=== PATIENT | female | born 2005 | race Caucasian/White ===

== ENCOUNTER 2025-03-27 01:25 | Emergency (ER) | payer OTHER, SELFPAY ==
[2025-03-27 01:38] VITALS: BP 169/10
--- NOTE | 2025-03-27 02:16 | ED.GENMED ---
History of Present Illness
General
Chief Complaint: Back Pain
Source: patient
Exam Limitations: none
Time Seen by Provider: 03/27/25 01:52
Nursing documentation reviewed up to this point in time: agreed with
History of Present Illness
History of Present Illness:
19-year-old female presenting to the emergency department today with concerns of back discomfort mainly to the left low back. Has had intermittent pain over the past 2 years after her back injury she sustained. Has had stiffness intermittently
usually uses a warm compress or heating pad. Tried using this tonight but has had ongoing pain. Has not taken any pain medications. Does occasionally take Tylenol for this. Denies any urinary symptoms changes in bowel movements numbness or
weakness.
Past History
Past History
ED Past Medical History: None
ED Past Surgical History: None
Social History
Tobacco: Non-smoker
Alcohol: None
Drug: None
Living: with family
Employment: Other
Family History
Family History: Other
Review of Systems
Review of Systems
Allergies reviewed?: Yes
All Other Systems: ROS reviewed and negative except as documented in HPI and ROS
Phy Exam
Physical Exam
Physical Exam:
GENERAL: Alert , in no apparent distress
EYE: pupils equal and reactive
NECK: Supple, no significant adenopathy.
ENT: o/p clr, mmm.
CARDIAC: Regular rate and rhythm .
LUNGS: Clear breath sounds bilaterally, no acute respiratory distress, no wheezes/rales/rhonchi
ABDOMEN: Soft, without focal tenderness, no r/g, no cvat
NEUROLOGICAL: Alert and oriented, no focal neuro deficits
SKIN: Warm and dry, skin intact.
MUSCULOSKELETAL: Pain is reproducible to light palpation of the left lower lumbar paraspinals no midline pain no redness or warmth increase discomfort with certain movements and positioning. Patient preferring to stand up during exam, no edema,
well perfused.
PSYCH: Normal and appropriate interaction.
Course
Orders/Labs/Results
Orders:
Orders
03/27/25 02:13
Ketorolac [Toradol] 30 mg IM NOW STA
03/27/25 02:14
Ketorolac [Toradol] 15 mg IM NOW STA
03/27/25 02:25
Test Result ONCE
03/27/25 02:28
Beta Hcg Urine Qualitative Screen [HCG, Urine Qualitative Screen] Urgent
Date Specimen was Collected: 03/27/25
Time Specimen was Collected: 02:26
Urinalysis Reflex To Culture Urgent
Date Specimen was Collected: 03/27/25
Time Specimen was Collected: 02:26
Urine Microscopic Reflex Cult Urgent
Urine Culture Urgent
KATHLEEN Source: U
Specimen Description:
Date Specimen was Collected: 03/27/25
Time Specimen was Collected: 02:26
03/27/25 03:08
Cyclobenzaprine HCl [Flexeril] 10 mg PO NOW STA
Abnormal Lab Results
03/27/25
02:28
Ur Occult Blood Reflex 2+ A
(Negative)
Leukocyte Esterase Rfl 3+ A
(Negative)
Urine WBC (Reflex) >100 A /HPF
(0-5)
Urine Bacteria (Reflex) Moderate A
(Negative)
Urine Albumin (Reflex) 2+ A
(Neg - Trace)
Vital Signs
Initial and Last Documented VS:
Initial Vital Signs
Temp Pulse Resp BP Pulse Ox
98.7 F 126 18 169/10 95
03/27/25 01:38 03/27/25 01:38 03/27/25 01:38 03/27/25 01:38 03/27/25 01:38
Last Documented Vital Signs
Temp Pulse Resp BP Pulse Ox
98.7 F 126 18 169/10 95
03/27/25 01:38 03/27/25 01:38 03/27/25 01:38 03/27/25 01:38 03/27/25 02:17
MDM/Problems Addressed
MDM/Problems Addressed:
19-year-old female presenting to the emergency department today with concerns of left low back discomfort stiffness. Has had intermittent back pain over the past few years. Has been assessed for this in the past and had an x-ray that did not show
any emergent findings at the time. Symptoms do seem to be consistent with mechanical back pain considering is worse with positioning and movement and does not have any associated symptoms with it. Of note the patient did have a urinalysis that
showed greater than 100 white blood cells as well as moderate bacteria. She denies any significant urinary symptoms no frequency urgency or pain with urination. There was significant amount of squamous epithelial cells. Patient's symptoms seemed
most consistent with mechanical pain considering it is worse with certain positions and movement. Very unlikely represent UTI. Was given Toradol as well as Flexeril with improvement of symptoms stable for discharge at this time. Return
precautions given.
*Pulse Oximetry
SaO2: 95
Oxygen Mode of Delivery: Room air
Patient hypoxic: no (95)
*Critical Care Note
Total Time (30-74mins, 75-104mins- exclusive of procedures): Not Applicable
ED Attending Note
-
Portions of this chart may have been created with voice recognition software.� Occasional wrong word or��sound alike� substitutions may have occurred due to the inherent limitations of voice recognition software.
Discharge Plan
Departure
Patient Disposition: Home (Routine Discharge)
Date of Disposition: 03/27/25
Time of Disposition: 03:53
Patient with high blood pressure during this ER visit?: No
Condition: Good
Discharge Problem:
Back pain
Instructions: Low Back Pain (DC)
Prescriptions:
New
cyclobenzaprine 10 mg tablet
10 mg PO HS PRN (Reason: muscle spasm) Qty: 7 0RF
ibuprofen 600 mg tablet
600 mg PO Q8H PRN (Reason: Pain) Qty: 12 0RF
No Action
ketorolac 10 mg tablet
10 mg PO TID 3 Days Qty: 10 0RF
Referrals:
Antolin Preston CRNP [Family Provider, Family Practice]
Activity Restrictions/Additional Instructions:
You came to the emergency department today with concerns of back discomfort. Please take the prescribed indications of the symptoms otherwise follow-up closely with the primary care doctor for further management and assessment. Return for any
worsening, new or concerning symptoms.
Interventions
Interventions:
*Risk Screen - Suicide Last Done: 03/27/25 01:38
*General Assessment Last Done: 03/27/25 04:34
*Neglect/Abuse Screening Last Done: 03/27/25 04:34
*ED- Fall Risk Assessment Last Done: 03/27/25 04:34
*ED COVID-19 Vaccine History Last Done: 03/27/25 04:34
*ED Influenza Vaccine History Last Done: 03/27/25 04:34
*Nursing Disposition Last Done: 03/27/25 04:36
ED-Musculoskeletal Assessment Last Done: 03/27/25 04:34
Discharge Date and Time
Discharge Date/Time: 03/27/25 04:37
Print Language: GREEK
[2025-03-27] MEDS: TORADOL 15 MG IM (02:19)
[2025-03-27 02:35] LABS: Urine Character Clear (Clear)
[2025-03-27 02:46] LABS: Urine Squamous Cell 26-30 /LPF (Few)
[2025-03-27 02:47] LABS: HCG, Urine Qualitative Screen Negative; Urine Red Blood Cell 0-2 /HPF (0-2); Urine White Cell >100 /HPF (0-5)
[2025-03-27] MEDS: FLEXERIL 10 MG PO (03:25)
== END 2025-03-27 04:37 | disposition home or self-care (01) ==
LOC: EMR 01:25
PROVIDERS: Physician Assistant; EMERGENCY PHYSICIAN Emergency Medicine; FAMILY PHYSICIAN Nurse Practitioner Family
DX: M54.50 Low back pain, unspecified (principal)
CPT/HCPCS: 99284; 96372; 81003; 81015; 81025; 87086

== ENCOUNTER 2025-04-03 01:29 | Day surgery (SDC) | payer OTHER, SELFPAY ==
[2025-04-02 19:20] VITALS: BP 156/95
[2025-04-02 20:31] VITALS: BMI 43.9
--- NOTE | 2025-04-02 20:33 | ED.GENMED ---
History of Present Illness
<Liana Urban NP - Last Filed: 04/03/25 00:50>
General
Chief Complaint: Abdominal Symptoms
Source: patient
Exam Limitations: none
Time Seen by Provider: 04/02/25 20:15
Nursing documentation reviewed up to this point in time: agreed with
History of Present Illness
History of Present Illness:
Patient to the emergency department with complaint of abdominal pain and vomiting. States she was seen in the emergency department on Monday with a complaint of left lower back pain she. She was diagnosed with a musculoskeletal injury, prescribed
muscle relaxant and anti-inflammatory. She states that after returning home from the emergency department she had an episode of vomiting. No further episodes of vomiting until this a.m. She reports improvement in her low back pain, but now
reports abdominal pain. She denies fever or chills. No episodes of diarrhea. Unable to eat or drink today due to the nausea and vomiting. She was evaluated at urgent care prior to coming here and was advised to come to the emergency department
for further evaluation. She was given Zofran by urgent care and reports improvement in her nausea symptoms. She has not had any further episodes of vomiting. To ED accompanied by mother.
Past History
<Liana Urban GENERAL MATCHER - Last Filed: 04/03/25 00:50>
Past History
ED Past Medical History: None
ED Past Surgical History: None
Social History
Tobacco: Non-smoker
Alcohol: None
Drug: None
Living: with family
Employment: Other
Family History
Family History: Other
Review of Systems
<Liana Urban NP - Last Filed: 04/03/25 00:50>
Review of Systems
Allergies reviewed?: Yes
All Other Systems: ROS reviewed and negative except as documented in HPI and ROS
Constitutional: Reports no symptoms
EENT: Reports no symptoms
Respiratory: Reports no symptoms
Cardiac: Reports no symptoms
ABD/GI: Reports abdominal pain (Upper abdominal pain), nausea and vomiting
: Reports no symptoms
Musculoskeletal: Reports no symptoms
Skin: Reports no symptoms
Neurological: Reports no symptoms
Psychiatric: Reports no symptoms
Phy Exam
<Liana Urban GENERAL MATCHER - Last Filed: 04/03/25 00:50>
General Physical Exam
General Presentation: mild distress
General age: appears stated age
General Skin: warm and dry
General Habitus: obese
General Mental: alert
Cardiovascular Exam
Cardiovascular Exam: regular rate/rhythm and no edema
Pulmonary Exam
Pulmonary Exam: lungs clear and no respiratory distress
Gastrointestinal Exam
Gastrointestinal Exam: soft, no organomegaly, no pulsatile mass and non distended
Palpation: left upper quadrant: Moderate tenderness, left lower quadrant: Mild tenderness, right upper quadrant: Moderate tenderness and right lower quadrant: Mild tenderness
Musculoskeletal Exam
Musculoskeletal Exam: full ROM and neuro vasc intact
Skin Exam
Skin Exam: normal color, warm/dry and no rash
Psychiatric Exam
Psychiatric Exam: normal mood/affect
Course
<Liana Urban GENERAL MATCHER - Last Filed: 04/03/25 00:50>
Orders/Labs/Results
Orders:
Orders
04/02/25 19:22
Test Result ONCE
04/02/25 20:30
Pantoprazole [Protonix IV] 40 mg IV NOW STA
04/02/25 20:31
0.9% Sodium Chloride 1000 ml [Nss] 1,000 ml IV BOLUS
04/02/25 20:32
CT Abd/pelvis W Iv Cont Urgent
Comment:
Reason For Exam: pain, vomiting
04/02/25 20:41
Complete Blood Count/With Diff Urgent
Comprehensive Metabolic Panel Urgent
HCG, Serum Qualitative Screen Urgent
Lipase Urgent
Urinalysis Reflex To Culture Urgent
Date Specimen was Collected: 04/02/25
Time Specimen was Collected: 20:37
Urine Microscopic Reflex Cult Urgent
Urine Culture Urgent
KATHLEEN Source: U
Specimen Description:
Date Specimen was Collected: 04/02/25
Time Specimen was Collected: 20:37
04/02/25 21:20
Pantoprazole [Protonix IV] 40 mg .ROUTE .STK-MED ONE
04/02/25 22:56
US Abdomen Complete/Upper Urgent
Comment:
Reason For Exam: upper abd. pain. Suspect cholecystitis on CT
04/03/25 00:49
Piperacillin/Tazo 3.375 Gram [Zosyn] 3.375 gram in 50 ml IV NOW
04/03/25 01:17
Admit/Transfer Patient As Directed
Co-Sign Provider:
Level of Care: Observation services
Assign to:: Medical/Surgical
Physician / Group: general surgery
Diagnosis: cholecystitis
PRN Pain Medication Management As Directed
May give lesser potent ordered pain med per pt: Yes
preference::
Protocol:: Medication orders for pain may be administered in a
manner that supports deferring to patient preference
when the pt is:
- Requesting an ordered lesser potent pain medication.
Least to most potent pain medications are defined
as: acetaminophen < NSAID < tramadol < opioids
(morphine, oxycodone, hydromorphone).
- Requesting a lesser dose of the same medication IF
ORDERED.
- Requesting a less intrusive route of administration
if both routes are prescribed by the provider (PO <
IV).
04/03/25 01:20
Code Status As Directed
Resuscitation Status: Full Code
Abnormal Lab Results
04/02/25
20:41
WBC 17.4 H 10^3/uL
(4.8-10.8)
MCH 31.1 H pg
(27.0-31.0)
Abs Immat Gran (auto) 0.1 H 10^3/uL
(0-0.05)
Absolute Neuts (auto) 14.8 H 10^3/uL
(1.4-6.5)
Absolute Monos (auto) 1.0 H 10^3/uL
(0.1-0.6)
Neutrophils % 85.1 H %
(42.2-75.2)
Lymphocytes % 8.1 L %
(20.5-51.1)
BUN 4 L mg/dl
(7-17)
Total Bilirubin 1.6 H mg/dl
(0.2-1.3)
Urine Ketones 3+ A
(Negative)
Ur Occult Blood Reflex 1+ A
(Negative)
Leukocyte Esterase Rfl 3+ A
(Negative)
Urine RBC 3-6 A /HPF
(0-2)
Urine WBC (Reflex) 30-40 A /HPF
(0-5)
Urine Bacteria (Reflex) Many A
(Negative)
Urine Albumin (Reflex) 2+ A
(Neg - Trace)
04/02/25 20:41
04/02/25 20:41
Vital Signs
Initial and Last Documented VS:
Initial Vital Signs
Temp Pulse Resp BP Pulse Ox
97.9 F 87 16 156/95 97
04/02/25 19:20 04/02/25 19:20 04/02/25 19:20 04/02/25 19:20 04/02/25 19:20
Last Documented Vital Signs
Temp Pulse Resp BP Pulse Ox
97.9 F 93 15 130/82 100
04/02/25 19:20 04/02/25 22:00 04/02/25 22:00 04/02/25 21:48 04/02/25 23:15
<Sarah Espinosa, DO - Last Filed: 04/03/25 01:49>
Orders/Labs/Results
Orders:
Orders
04/02/25 19:22
Test Result ONCE
04/02/25 20:30
Pantoprazole [Protonix IV] 40 mg IV NOW STA
04/02/25 20:31
0.9% Sodium Chloride 1000 ml [Nss] 1,000 ml IV BOLUS
04/02/25 20:32
CT Abd/pelvis W Iv Cont Urgent
Comment:
Reason For Exam: pain, vomiting
04/02/25 20:41
Complete Blood Count/With Diff Urgent
Comprehensive Metabolic Panel Urgent
HCG, Serum Qualitative Screen Urgent
Lipase Urgent
Urinalysis Reflex To Culture Urgent
Date Specimen was Collected: 04/02/25
Time Specimen was Collected: 20:37
Urine Microscopic Reflex Cult Urgent
Urine Culture Urgent
KATHLEEN Source: U
Specimen Description:
Date Specimen was Collected: 04/02/25
Time Specimen was Collected: 20:37
04/02/25 21:20
Pantoprazole [Protonix IV] 40 mg .ROUTE .STK-MED ONE
04/02/25 22:56
US Abdomen Complete/Upper Urgent
Comment:
Reason For Exam: upper abd. pain. Suspect cholecystitis on CT
04/03/25 00:49
Piperacillin/Tazo 3.375 Gram [Zosyn] 3.375 gram in 50 ml IV NOW
04/03/25 01:17
Admit/Transfer Patient As Directed
Co-Sign Provider:
Level of Care: Observation services
Assign to:: Medical/Surgical
Physician / Group: general surgery
Diagnosis: cholecystitis
PRN Pain Medication Management As Directed
May give lesser potent ordered pain med per pt: Yes
preference::
Protocol:: Medication orders for pain may be administered in a
manner that supports deferring to patient preference
when the pt is:
- Requesting an ordered lesser potent pain medication.
Least to most potent pain medications are defined
as: acetaminophen < NSAID < tramadol < opioids
(morphine, oxycodone, hydromorphone).
- Requesting a lesser dose of the same medication IF
ORDERED.
- Requesting a less intrusive route of administration
if both routes are prescribed by the provider (PO <
IV).
04/03/25 01:20
Code Status As Directed
Resuscitation Status: Full Code
Abnormal Lab Results
04/02/25
20:41
WBC 17.4 H 10^3/uL
(4.8-10.8)
MCH 31.1 H pg
(27.0-31.0)
Abs Immat Gran (auto) 0.1 H 10^3/uL
(0-0.05)
Absolute Neuts (auto) 14.8 H 10^3/uL
(1.4-6.5)
Absolute Monos (auto) 1.0 H 10^3/uL
(0.1-0.6)
Neutrophils % 85.1 H %
(42.2-75.2)
Lymphocytes % 8.1 L %
(20.5-51.1)
BUN 4 L mg/dl
(7-17)
Total Bilirubin 1.6 H mg/dl
(0.2-1.3)
Urine Ketones 3+ A
(Negative)
Ur Occult Blood Reflex 1+ A
(Negative)
Leukocyte Esterase Rfl 3+ A
(Negative)
Urine RBC 3-6 A /HPF
(0-2)
Urine WBC (Reflex) 30-40 A /HPF
(0-5)
Urine Bacteria (Reflex) Many A
(Negative)
Urine Albumin (Reflex) 2+ A
(Neg - Trace)
04/02/25 20:41
04/02/25 20:41
Vital Signs
Initial and Last Documented VS:
Initial Vital Signs
Temp Pulse Resp BP Pulse Ox
97.9 F 87 16 156/95 97
04/02/25 19:20 04/02/25 19:20 04/02/25 19:20 04/02/25 19:20 04/02/25 19:20
Last Documented Vital Signs
Temp Pulse Resp BP Pulse Ox
97.9 F 93 15 130/82 100
04/02/25 19:20 04/02/25 22:00 04/02/25 22:00 04/02/25 21:48 04/02/25 23:15
<Liana Urban NP - Last Filed: 04/03/25 00:50>
*Radiology
Radiology exam reviewed: radiology read reviewed
*Pulse Oximetry
SaO2: 97
Oxygen Mode of Delivery: Room air
Patient hypoxic: no
*Critical Care Note
Total Time (30-74mins, 75-104mins- exclusive of procedures): Not Applicable
<Liana Urban NP - Last Filed: 04/03/25 00:50>
Update Note
Update Note:
Patient to the emergency department with complaint of upper abdominal pain nausea vomiting. Symptoms started this morning and continued to worsen throughout the day. She was seen in the emergency department approximately 5 days ago with complaint
of back pain. She reports episodes of vomiting when she returned home that evening. [place] well until this a.m. vital signs stable she has remained afebrile. Labs reviewed, WBC 17.4 T. bili 1.[address] of abdomen and pelvis completed
results of questionable mild perocholecystic edema, consider cholecystitis. Sent for an ultrasound. Ultrasound report of gallbladder measuring up to 4 mm, CBD up to 5 mm overall findings equivocal. Dr. Gonzales consulted. Patient will be admitted
to his service. She is to remain NPO. Antibiotics started in ED. CT and ultrasound findings were discussed with patient and her mother, patient is agreeable to admission.
ED Attending Note
<Liana Urban, GENERAL MATCHER - Last Filed: 04/03/25 00:50>
-
Portions of this chart may have been created with voice recognition software.� Occasional wrong word or��sound alike� substitutions may have occurred due to the inherent limitations of voice recognition software.
<Sarah Espinosa DO - Last Filed: 04/03/25 01:49>
ED Attending Note
Patient seen and examined by attending physician: Yes
I performed a history and physical exam of patient and discussed management with resident, I reviewed resident's note and agree with documented findings and plan of care.: Yes
ED Attending Note:
19-year-old obese female presents with acute upper abdominal pain associated with nausea and vomiting.
Exam notable for moderate tenderness epigastric region without rebound or guarding. Mild tenderness right upper quadrant.
Labs notable for elevated white blood cell count of 17.4. Mildly elevated T. bili at 1.6. Otherwise LFTs and lipase within normal limits. hCG is negative.
CT shows cholelithiasis with questionable mild Quan cholecystic edema, concerning for acute cholecystitis.
Abdominal ultrasound shows cholelithiasis. Reported negative Velez sign however on exam patient continues with at least mild right upper quadrant tenderness to palpation. There is also note of gallbladder wall thickness of 4 mm, common bile duct
of 5 mm.
Overall history, exam, imaging concerning for acute cholecystitis.
Will continue IV fluids, initiate IV antibiotics, medicate for pain and nausea.
Case discussed with general surgery, will admit to general surgery service.
Discharge Plan
Departure
Patient Disposition: Admit
Date of Disposition: 04/03/25
Time of Disposition: 00:49
Presentation/result/management discussed w/ accepting MD/: Dr. Gonzales
Patient with high blood pressure during this ER visit?: No
Condition: Fair
Covid-19: Not Applicable
Discharge Problem:
Acute cholecystitis
Interventions
Interventions:
*Risk Screen - Suicide Last Done: 04/02/25 19:21
*General Assessment Last Done: 04/02/25 22:25
*Neglect/Abuse Screening Last Done: 04/02/25 19:21
*ED- Fall Risk Assessment Last Done: 04/02/25 22:25
*ED COVID-19 Vaccine History Last Done: 04/02/25 22:25
*ED Influenza Vaccine History Last Done: 04/02/25 22:25
UF-Pouvew-[id number] Assessment Last Done: 04/02/25 20:25
[2025-04-02 21:05] LABS: Urine Character Clear (Clear)
[2025-04-02] MEDS: PROTONIX IV 40 MG IV (21:26)
[2025-04-02] MEDS: NSS 1000 IV (21:27)
[2025-04-02 21:38] LABS: Urine Squamous Cell >30 /LPF (Few)
[2025-04-02 21:39] LABS: Urine White Cell 30-40 /HPF (0-5)
[2025-04-02 21:46] LABS: Hematocrit 43.6 % (37.0-47.0); Hemoglobin 14.6 g/dL (12.0-16.0); Mean Corp Hgb Conc. 33.5 g/dL (33.0-37.0); Mean Corpuscular Volume 93.0 fL (81.0-99.0); Nucleated Red Blood Cells % 0 %; Platelet Count 323 10^3/uL (130-400); Red Cell Dist. Width 11.9 % (11.5-14.5)
[2025-04-02 21:48] VITALS: BP 130/82
[2025-04-02 21:59] LABS: HCG, Serum Qualitative Screen Negative
[2025-04-02 22:08] LABS: ALT (SGPT) 32 U/L (0-35); AST (SGOT) 15 U/L (14-36); Albumin 4.5 g/dl (3.5-5.0); Alkaline Phosphatase 94 U/L (38-126); Blood Urea Nitrogen 4 mg/dl (7-17); Calcium 9.5 mg/dl (8.4-10.2); Carbon Dioxide 26 mmol/L (22-30); Chloride 100 mmol/L (98-107); Estimated Creatinine Clearance > 125 ml/min; Glucose 98 mg/dl (70-99); Lipase 53 U/L (23-300); Potassium 4.2 mmol/L (3.5-5.1); Sodium 135 mmol/L (135-145); Total Protein 7.4 g/dl (6.3-8.2); eGFR > 60.00
[2025-04-03] VITALS (13 sets, daily range): BP systolic 119–143; BP diastolic 66–91; BMI 43.4
[2025-04-03] MEDS: ZOSYN 50 IV ×5 (01:08→23:14)
--- NOTE | 2025-04-03 01:36 | HPS.HSE ---
Addendum entered and electronically signed by Fabian Hicks MD 04/03/25 09:18:
Patient seen and examined independently of admitting nurse practitioner. Agree with documented history and physical with additions noted below.
HPI: 19-year-old female was in her usual baseline state of health until last week when she developed lower back pain prompting emergency department evaluation. This was felt to be due to musculoskeletal injury and she was treated with a muscle
relaxant and anti-inflammatory. Shortly after returning home she had nausea and vomiting. Her pain remained present but slightly improved. She had continued anorexia throughout the weekend and into early this week. Yesterday began to take note
of increasing epigastric abdominal pain rating to the right upper quadrant. This prompted reevaluation and findings concerning for acute calculous cholecystitis. Persistent pain this a.m. Nausea improved. Vomiting resolved. Bowels have been
moving regularly otherwise.
She denies any significant past medical history. No past abdominal surgical history.
No active medications.
No allergies.
AFVSS
NAD AAO x 3
ABD: soft, tenderness to palpation generalized but greatest in the right upper quadrant epigastrium with some voluntary guarding on deep palpation.
Workup notable for leukocytosis with white blood cell count of 16.6, mildly elevated total bilirubin 2.3; remaining LFTs within normal limits. Lipase normal.
CT and ultrasound imaging personally reviewed. Numerous gallstones. Tensely distended gallbladder with inflammatory changes consistent with acute cholecystitis. Stone in the region of the neck of the gallbladder. No biliary ductal dilation.
Assessment/plan: 19-year-old female presenting with acute calculous cholecystitis and secondary intractable abdominal pain/anorexia
Reviewed with patient and her mother at bedside indications for cholecystectomy. Patient in agreement to proceed with surgery.
Laparoscopic cholecystectomy with intraoperative cholangiogram was reviewed in detail including the operative technique utilizing a diagram and drawing. Discussed alternative nonoperative treatment options, benefits, risks such as but not limited
to bleeding, infectious and related complications, iatrogenic injury to surrounding viscera, bile duct injury, bile leak, and postcholecystectomy bowel changes. We discussed the typical postoperative recovery pending operative findings including
the possibility of choledocholithiasis and its management.
Any of the patient's or her mother's concerns or questions were confirmed to be fully addressed and informed consent was obtained.
Patient is on the OR schedule for cholecystectomy today
Continue current supportive care
Zosyn
Original Note:
Family Physician
-
Family Physician: XAVIER Valentino
Chief Complaint
-
abd pain, nausea and vomiting
History of Present Illness
19 yo female presets to ED with complaint of abdominal pain and vomiting. States she was seen in the emergency department on Monday with a complaint of left lower back pain. She was diagnosed with a musculoskeletal injury, prescribed muscle
relaxant and anti-inflammatory. She states that after returning home from the emergency department she had an episode of vomiting. No further episodes of vomiting until this a.m. She reports improvement in her low back pain, but now reports
epigastric abdominal pain radiating to RQ She denies fever or chills. No episodes of diarrhea. Unable to eat or drink today due to the nausea and vomiting. She was evaluated at urgent care prior to coming here and was advised to come to the
emergency department for further evaluation. She was given Zofran by urgent care and reports improvement in her nausea symptoms. She has not had any further episodes of vomiting. States she has never experienced pain like this before. Accompanied
by mother.
ED treatments:
CT abd:IMPRESSION:
Cholelithiasis. Questionable mild pericholecystic edema. Consider possibility of cholecystitis. No bile duct dilatation.
Dominant right ovarian follicle, 3 cm. Small left ovarian follicle 1.4 cm.
No bowel obstruction. No obstructive uropathy. The appendix is normal.
US abd: Ultrasound report of gallbladder measuring up to 4 mm, CBD up to 5 mm overall findings equivocal
Wbc 17.4--> zosyn started
Pain currently /10
Medical History
Past Medical History
Past Medical History: Reports None
Past Surgical History: Reports None
Social History
Tobacco: Non-smoker
Alcohol: None
Drug: None
Personal: Single
Living: With Family
Family History
Family History: Not pertinent
Allergies / Home Medications
Allergies reflects when Allergies were last updated in [facility].
Home Medications with original date entered in [facility]
Allergy/Medication List:
Allergies
Allergy/AdvReac Type Severity Reaction Status Date / Time
No Known Allergies Allergy Verified 03/27/25 01:37
Home Medications
cyclobenzaprine 10 mg tablet 10 mg PO HS PRN muscle spasm #7 tabs 03/27/25
ibuprofen 600 mg tablet 600 mg PO Q8H PRN Pain #12 tabs 03/27/25
Review of Systems
-
History Source: Patient and Family (mother at bedside)
A 12 point ROS was completed and negative except as noted: Yes
Constitutional: Reports Other (n/v abd pain RUQ)
EENT: Reports No Symptoms
Respiratory: Reports No Symptoms
Cardiac: Reports No Symptoms
Abdomen/GI: Reports Abdominal Pain (epigastric to RQ), Nausea, Vomiting and Anorexia
: Reports No Symptoms
Musculoskeletal: Reports No Symptoms
Skin: Reports No Symptoms
Neurological: Reports No Symptoms
Endocrine: Reports No Symptoms
Hematologic/Lymphatic: Reports No Symptoms
Psych: Reports No Symptoms
Physical Exam
Vital Signs
Vital Signs
Temp Pulse Resp BP Pulse Ox
97.9 F 93 15 130/82 100
04/02/25 19:20 04/02/25 22:00 04/02/25 22:00 04/02/25 21:48 04/02/25 23:15
Physical Exam
General: Well Developed, Well Nourished, No Apparent Distress, Comfortable and Conversant
HEENT: NormoCephalic, Anicteric and Moist mucous membranes
Respiratory: Clear
Cardiac: S1/S2 and Regular Rhythm
Breast: Deferred by me
GI: Soft, Normal Bowel Sounds and Tender (EPigastric tenderness)
Rectal: Deferred by Provider
Musculoskeletal: No Clubbing and No Cyanosis
Skin: Warm and Dry
Neuro: Awake, Alert, Oriented, AO x 3 and No Motor Deficits
Hematologic/Lymphatic: No Lymphadenopathy
Psych: Calm
Laboratory Results
-
04/02/25 20:41
04/02/25 20:41
Laboratory Results
Total Bilirubin 1.6 mg/dl (0.2-1.3) H 04/02/25 20:41
AST 15 U/L (14-36) 04/02/25 20:41
ALT 32 U/L (0-35) 04/02/25 20:41
Alkaline Phosphatase 94 U/L (38-126) 04/02/25 20:41
Lipase 53 U/L (23-300) 04/02/25 20:41
Data Reviewed
-
CT Scan: Discussed with Physician
Ultrasound: Discussed with Physician
Lab Data: Labs Reviewed by me and Discussed with Physician
Impression/Plan
-
IMPRESSION:
19yo female presents with abd pain (RUQ) and vomiting today. CT scan consistent with cholecystitis
PLAN:
Admit to service of Dr Gonzales
med surg obs
#cholecystitis
-npo x meds
-ivf NSS@100
-pain control: tyelnol, toradol, morphine prn
-Cont zosyn iv q 6
-CT abd:
Cholelithiasis. Questionable mild pericholecystic edema. Consider possibility of cholecystitis. No bile duct dilatation.
Dominant right ovarian follicle, 3 cm. Small left ovarian follicle 1.4 cm.
No bowel obstruction. No obstructive uropathy. The appendix is normal.
-US abd: Ultrasound report of gallbladder measuring up to 4 mm, CBD up to 5 mm
-WBC 17.4 ---> repeat cmp and cbc in am
DVT proph: scd for now
Full code
[2025-04-03] MEDS: ZOFRAN 4 MG IV (01:58)
[2025-04-03] MEDS: DILAUDID 0.5 MG IV (01:58)
[2025-04-03] MEDS: NSS 1000 IV ×2 (02:09→17:45)
--- NOTE | 2025-04-03 06:26 | PTCARENOTE ---
At 0250, pt received via stretcher from ED w/ mother at bedside. Medsurg order. VSS. AAOx3, pain controlled. Upper Abdomen tender to palpate.
IV team placed new IV 22 left median antebrachial, IVF restarted at 100ml/hr per MD order. Plan of care discussed. Call stock within reach.
[2025-04-03 08:01] LABS: Hematocrit 40.8 % (37.0-47.0); Hemoglobin 13.5 g/dL (12.0-16.0); Mean Corp Hgb Conc. 33.1 g/dL (33.0-37.0); Mean Corpuscular Volume 94.2 fL (81.0-99.0); Nucleated Red Blood Cells % 0 %; Platelet Count 331 10^3/uL (130-400); Red Cell Dist. Width 11.8 % (11.5-14.5)
[2025-04-03 08:33] LABS: ALT (SGPT) 27 U/L (0-35); AST (SGOT) 17 U/L (14-36); Albumin 4.2 g/dl (3.5-5.0); Alkaline Phosphatase 85 U/L (38-126); Blood Urea Nitrogen 4 mg/dl (7-17); Calcium 8.9 mg/dl (8.4-10.2); Carbon Dioxide 21 mmol/L (22-30); Chloride 103 mmol/L (98-107); Estimated Creatinine Clearance > 125 ml/min; Glucose 96 mg/dl (70-99); Potassium 3.7 mmol/L (3.5-5.1); Sodium 134 mmol/L (135-145); Total Protein 7.0 g/dl (6.3-8.2); eGFR > 60.00
--- NOTE | 2025-04-03 09:18 | W.SUR.PREOP ---
Pre-Operative Surgical Note
-
I have examined this patient prior to the performance of the scheduled procedure.
The patient's condition is unchanged from the time of the current History and
Physical and the patient is able to undergo the scheduled procedure.
--- NOTE | 2025-04-03 12:15 | W.IMMPOSTOP ---
Addendum entered and electronically signed by Fabian Hicks MD 04/03/25 12:31:
#[id number]
Original Note:
Surgical Immed Post Op Note
-
Primary Surgeon: Fabian Hicks MD
Assisting Surgeon: Hema Haque
Pre-op Diagnosis: Acute calculous cholecystitis
Post-op Diagnosis: Acute calculous cholecystitis
Procedure Performed: Laparoscopic cholecystectomy with intraoperative cholangiogram
Anesthesia Type: GETA +0.25% Marcaine with epi
Specimen / Cultures: Gallbladder/none
Estimated Blood Loss: 10 mL
Complications: None immediate
Operative Findings: Tensely distended gallbladder encased within inflammatory peel. Cyst needle decompression to aid in grasping/retraction. Cystic duct and artery individually identified with critical view of safety achieved. Posterior cystic
artery branch also identified. Intraoperative cholangiogram normal. Gallbladder removed off liver bed intact. Epigastric 12 mm trocar site enlarged to accommodate thickened gallbladder with large stones. Posterior sheath/peritoneum and anterior
sheath closed under direct visualization.
Updated patient's mother postoperatively via phone call
--- NOTE | 2025-04-03 14:23 | PTCARENOTE ---
Addendum entered by Jackie Sánchez RN 04/03/25 18:16:
pt assisted out of bed to void large amount of urine. tolerated some bites of lunch, encouraged to order dinner tray. pt still feeling drowsy from anesthesia. Dr Hicks made aware. care ongoing
Original Note:
pt returned to room 2106 @1335 from PACU . pt drowsy but easily arousable. O2 2l NC-PO 98%. mom at bedside. tolerating ice chips and sips of water. denies pain or nausea, lap sites [employer] w/surgical adhesive. care ongoing.
--- NOTE | 2025-04-03 14:25 | CM ---
CM reviewed chart and spoke with patient and mother at bedside
OBS form sighed at 2 :20 pm after discussing with patient and mother
Lives with mother in a 2 story home [address] and 16 steps to bathroom
no DME PLOF Independent
PCP Tracey Vegas
RX plan yes
Pharmacy [facility] on [address] in [place]
no hx of VN nor SNF
Mother can provide transportation when medically cleared
No needs anticipated but CM available for any dcp needs
DCP home with no services when cleared
[2025-04-03] MEDS: TORADOL 10 MG IV ×2 (17:47→23:13)
[2025-04-04 03:06] VITALS: BP 118/61
[2025-04-04] MEDS: NSS 1000 IV (03:31)
[2025-04-04] MEDS: ZOSYN 50 IV (05:02)
[2025-04-04] MEDS: TORADOL 10 MG IV ×2 (05:03→11:46)
--- NOTE | 2025-04-04 07:28 | W.PN.GS2 ---
Today's Communication / Plan
-
`
Assessment / Plan
-
Assessment: 19-year-old female POD #1 status post laparoscopic cholecystectomy for acute calculous cholecystitis with normal intraoperative cholangiogram
AFVSS
Doing well postop
Plan: D/C home instructions reviewed
Subjective Data
-
Date of Service: April 04, 2025
Patient seen and examined.
Postoperative pain predominantly at the epigastric incision site but adequately controlled.
No nausea or vomiting, appetite returning, going to order breakfast.
Objective Data
-
Intake and Output
04/03/25 04/04/25 04/05/25
06:59 06:59 06:59
Intake Total 500 / 500 4150 / 4150
Balance 500 / 500 4150 / 4150
Intake:
Oral fluids 1800 / 1800
IV fluids (Total) 500 / 500 2200 / 2200
Normosal 100 / 100
IV piggybacks 150 / 150
Other:
Number of approximated MODERATE 1 3
amounts of urine
Number of approximated LARGE 1
amounts of urine
Vital Signs
Temp Pulse Resp BP Pulse Ox
98.2 F 54 18 118/61 98
04/04/25 03:06 04/04/25 03:06 04/04/25 03:06 04/04/25 03:06 04/04/25 03:06
Lab Results
04/03/25 06:54
04/03/25 06:54
Calcium 8.9 mg/dl (8.4-10.2) 04/03/25 06:54
Total Bilirubin 2.3 mg/dl (0.2-1.3) H 04/03/25 06:54
AST 17 U/L (14-36) 04/03/25 06:54
ALT 27 U/L (0-35) 04/03/25 06:54
Alkaline Phosphatase 85 U/L (38-126) 04/03/25 06:54
Total Protein 7.0 g/dl (6.3-8.2) 04/03/25 06:54
Albumin 4.2 g/dl (3.5-5.0) 04/03/25 06:54
Physical Exam
-
NAD AAO x 3
ABD: soft, nondistended, tenderness to palpation localizing predominantly to the epigastric incision site. Incisions with glue dressings. No ecchymosis, no drainage, no erythema.
--- NOTE | 2025-04-04 07:30 | W.DS.TRANS ---
Addendum entered and electronically signed by XAVIER Lan 04/04/25 09:37:
dictated #[id number]
Original Note:
DC Summary - [employer]
-
Discharge Instructions:
Discharge Diagnosis/Procedures Acute calculous cholecystitis. Laparoscopic
cholecystectomy
Diet As tolerated,Low Fat
Additional Diets Smaller meals initially after surgery as
abdominal bloating and distention are common in
the first few days
Activity No strenuous activity
Additional Activity No lifting over 20 pounds for 4 weeks postop
Driving Restrictions No driving for 3 to 5 days or if using narcotics
Bathing Restrictions OK to Shower
Wound Care Glue at surgical sites typically peels off in 2
to 3 weeks
Instructions:
Stand-Alone Forms:
Changes to Home Medications: No
Discharge Medications:
DC Medications w/original date entered in [facility]
acetaminophen 500 mg tablet (Tylenol Extra Strength) 1,000 mg (2 x 500 mg) PO Q6HPRN PRN mild pain #1 tab 04/03/25
ibuprofen 200 mg tablet 400 mg (2 x 200 mg) PO Q6HPRN PRN moderate pain #1 tab 04/03/25
oxycodone 5 mg tablet 5 mg PO Q4HPRN PRN breakthrough/severe pain #10 tabs 04/03/25
Home Medication Changes
Pending Results: No
[2025-04-04 07:55] VITALS: BP 135/76
--- NOTE | 2025-04-04 09:58 | CM ---
Patient seen at bedside in [address] [place] [address]. Plan for discharge home today. Patient with no needs for discharge. OBS form completed on chart. Mother to transport home. CM will continue to follow for discharge planning needs.
Plan; home with no needs at this time
[2025-04-04 11:30] VITALS: BP 118/73
== END 2025-04-04 13:46 | disposition home or self-care (01) ==
LOC: SDS 01:29
PROVIDERS: Nurse Practitioner; Nurse Practitioner Family; Student in an Organized Health Care Education/Training Program; ATTENDING PHYSICIAN Surgery; EMERGENCY PHYSICIAN Emergency Medicine; FAMILY PHYSICIAN Nurse Practitioner Family
DX: K80.00 Calculus of gallbladder with acute cholecystitis without obstruction (principal); K82.A1 Gangrene of gallbladder in cholecystitis; K80.12 Calculus of gallbladder with acute and chronic cholecystitis without obstruction; R10.13 Epigastric pain
CPT/HCPCS: 47563; 74177; 74300; 76000; 76700; 80053; 81003; 81015; 83690; 84703; 85025; 87086; 88304; 96365; 99285; 99406; A4300; Q9967